=== PATIENT | female | born 1940 | race Caucasian/White ===

== ENCOUNTER → 2017-01-28 | Outpatient (CLI) | payer MEDICARE, BC ==
--- NOTE | 2017-01-29 06:48 | PN ---
DATE OF SERVICE: 01/28/2017 A 76-year-old lady has been followed in the sleep center for treatment of obstructive sleep apnea/hypopnea syndrome. Patient continued to use her equipment every night for the whole night. She brought her CPAP unit, but without electrical cord I cannot check the machine. [place] Sleepiness Scale is only 4. Patient lost weight from 162 pounds during her previous visit down to 154 pounds. No snoring with the machine. No sleepiness during the day. [place] Sleepiness Scale is 4. MEDICATIONS: Levothyroxine, aspirin, atorvastatin, amlodipine, losartan, famotidine, allopurinol, metoprolol, furosemide. PHYSICAL EXAMINATION: During physical exam, the patient in no distress. VITAL SIGNS: BP 133/58, HR 60, RR 16. Height 5 feet 2 inches. Weight 154. BMI 28.1. Temperature 97.7, oxygen saturation at room air 92%, HEENT: PERRLA, EOMI. Evaluation of oropharynx showed low position of soft palate. NECK: Supple. No JVD, Thyroid is not palpable. LUNGS: Clear to percussion and to auscultation. Good air exchange. No wheezing or rhonchi. HEART: S1, S2 regular. No murmurs, gallops, or rubs. ABDOMEN: Soft and nontender. Bowel sounds are present. No organomegaly appreciated. LICENSED CLINICIAN: Awake, alert, and oriented x3. Cranial nerves 2 to 7 intact. There is no fasciculation or atrophy noted. No focal deficits observed. IMPRESSION: 1. Obstructive sleep apnea-hypopnea syndrome, clinically on control with CPAP at 7 cm of water. Patient using 2 L/minute oxygen supplement. 2. Hypertension. 3. Hypothyroidism. 4. Acid reflux. 5. Hyperlipidemia. 6. History of stroke. 7. History of gout. 8. Status post cerebral bypass surgery. PLAN: 1. Continue treatment with CPAP every night for the whole night. Repeat oximetry at home with CPAP at room air to check necessity for additional oxygen. 2. Sleep hygiene with regular time in bed for at least 8 hours. 3. Prescription for all necessary CPAP supplies. Thank you very much for allowing me to participate in the management of your patient. Sincerely, Goran Carrizales MD, PhD, FAASM Diplomat of [place] [employer], Sleep Medicine Board by [place] [employer] [place] [employer] Quality Associate of [facility] [place]
== END | disposition home or self-care (01) ==
LOC: SLEEP 17:00
PROVIDERS: ATTEND Internal Medicine
DX: G47.33 Obstructive sleep apnea (adult) (pediatric) (principal); Z79.899 Other long term (current) drug therapy; I10 Essential (primary) hypertension; E03.9 Hypothyroidism, unspecified; E78.5 Hyperlipidemia, unspecified; M10.9 Gout, unspecified; Z86.73 Personal history of transient ischemic attack (TIA), and cerebral infarction without residual deficits

== ENCOUNTER → 2017-03-29 | Outpatient (CLI) | payer MEDICARE ==
--- NOTE | 2017-03-29 11:09 | US ---
EXAMINATION TYPE: US kidneys/renal and bladder DATE OF EXAM: 03/29/2017 COMPARISON: US and CT abdomen October 13, 2013. CLINICAL HISTORY: N18.3 Chronic kidney disease, stage 3 (moderate). CKD EXAM MEASUREMENTS: Right Kidney: 10.2 x 4.5 x 3.8 cm Left Kidney: 9.2 x 4.4 x 3.4 cm Right Kidney: No evidence of hydro, hypoechoic to anechoic lesion lower/lateral= 0.8 x 0.6 x 0.9 cm probable simple cyst, too small to further characterize Left Kidney: No evidence of hydro, cyst upper/medial= 1.0 x 0.8 x 1.1 cm Bladder: wnl Bilateral Jets seen: Yes There is no evidence for hydronephrosis at this point in time. No nephrolithiasis is seen. No kell s are identified. The urinary bladder is anechoic. Bilateral ureteral jets are seen. IMPRESSION: A few simple appearing cysts are felt present on current study. No hydronephrosis is evident ryan fournier.
== END | disposition home or self-care (01) ==
LOC: RADUSWWP 10:35
PROVIDERS: ATTEND Internal Medicine Nephrology
DX: N28.1 Cyst of kidney, acquired (principal); N18.3 Chronic kidney disease, stage 3 (moderate)
CPT/HCPCS: 76770

== ENCOUNTER → 2018-03-10 | Outpatient (CLI) | payer MEDICARE ==
--- NOTE | 2018-03-10 17:06 | PN ---
PROGRESS NOTE DATE OF SERVICE: 03/10/2018 77-year-old lady has been followed in Sleep Center for treatment of obstructive sleep apnea-hypopnea syndrome. The patient continued to use her equipment every night for the whole night without any significant problems. [place] Sleepiness Scale today is only 2. I checked CPAP unit. CPAP pressure is 7 cm of water. Usage is 100% of the time for more than 4 hours. Average usage is 7.4 hours. Leak is slightly higher than the border 37 L/minute. At the same time, Apnea-hypopnea index is totally normal 2.6. MEDICATIONS: Gabapentin, levothyroxine, aspirin, vitamin D, atorvastatin, amlodipine, losartan, famotidine, allopurinol, metoprolol, furosemide, vitamins and magnesium supplement. PHYSICAL EXAM: Patient in no distress. BP 148/73, HR 67, RR 18, height 5 feet 2 inches, weight 253.8, BMI 28.1, temperature 97.8, oxygen saturation on room air 93%. Oropharynx: Low position of soft palate. Neck: Supple, no JVD. Thyroid is not palpable. LUNGS Clear to percussion and to auscultation. Good air exchange. No wheezing or rhonchi. HEART S1, S2 regular. No murmurs, gallops, or rubs. ABDOMEN: Soft and nontender. Bowel sounds are present. No organomegaly appreciated. EXTREMITIES No clubbing or cyanosis. ASSISTANT WOMEN'S TENNIS COACH Awake, alert, and oriented X3. Cranial nerves 2 to 7 intact. There is no fasciculation or atrophy. noted. No focal deficits observed. IMPRESSION: 1. Severe obstructive sleep apnea-hypopnea syndrome on control with CPAP with 7 cm of water patient demonstrated 100% compliance with treatment benefitting from treatment. The patient is also on oxygen supplement at night at 2 L/minute. 2. Hypertension. 3. Hypothyroidism. 4. Hyperlipidemia. 5. Acid reflux. 6. History of stroke. 7. History of gout. 8. Status post was cerebral bypass surgery. 9. History of stomach ulcer. PLAN: 1. Patient will continue to use her CPAP equipment every night for the whole night. 2. Prescription for all necessary CPAP supplies including mask, tube, filters. 3. No driving if feeling sleepiness. 4. Watching weight. 5. Followup visit in 1 year. 6. I reviewed results of the previous sleep study. It does shows that the patient needs oxygen supplement with the CPAP. Thank you very much for allowing me to participate in management of your patient. Sincerely, Goran Carrizales MD, PhD, FAASM Diplomat of [place] [employer] [employer] Well Service Floorperson of [facility] [place] CLAU / ROSALBA: [id number] /
== END | disposition home or self-care (01) ==
LOC: SLEEP 15:34
PROVIDERS: ATTEND Internal Medicine
DX: G47.33 Obstructive sleep apnea (adult) (pediatric) (principal); K21.9 Gastro-esophageal reflux disease without esophagitis; I10 Essential (primary) hypertension; E03.9 Hypothyroidism, unspecified; E78.5 Hyperlipidemia, unspecified; M10.9 Gout, unspecified; Z99.89 Dependence on other enabling machines and devices; Z79.82 Long term (current) use of aspirin; Z79.899 Other long term (current) drug therapy; Z86.73 Personal history of transient ischemic attack (TIA), and cerebral infarction without residual deficits; Z87.11 Personal history of peptic ulcer disease; Z98.890 Other specified postprocedural states

== ENCOUNTER → 2019-02-02 | Outpatient (CLI) | payer OTHER, MEDICARE ==
--- NOTE | 2019-02-02 21:14 | PN ---
PROGRESS NOTE DATE OF SERVICE: 02/02/2019 78-year-old lady has been followed in the Sleep Center for treatment of obstructive sleep apnea-hypopnea syndrome. The patient successfully continues to use her CPAP equipment. No problem with the mask or pressure. [place] Sleepiness Scale today is 3. I checked patient CPAP unit for the last 6 months, which is 180 days. Patient used it for more than 4 hours, 151 nights and averaged 7.3 hours per night. Pressure is 7 cm of water. Leak is 23 L/minute, which is borderline. Apnea-hypopnea index 3.6, which is normal range. MEDICATIONS: Levothyroxine, aspirin, Atorvastatin, amlodipine, losartan, Famotidine, allopurinol, metoprolol, Furosemide, albuterol. PHYSICAL EXAM: Patient in no distress. BP 153/83, HR 78, RR 16, height 5 feet 2 inches, weight 148.4 pounds and a body mass index 27.0. Oxygen saturation 95%. Temperature 97.7. HEENT: Oropharynx low position of soft palate, Mallampati 3-4. Neck Supple, no JVD. Thyroid is not palpable. LUNGS Clear to percussion and to auscultation. Good air exchange. No wheezing or rhonchi. HEART S1, S2 regular. No murmurs, gallops, or rubs. ABDOMEN Soft and nontender. Bowel sounds are present. No organomegaly appreciated. EXTREMITIES No clubbing or cyanosis. ASSISTANT HVAC MECHANIC Awake, alert, and oriented X3. Cranial nerves 2 to 7 intact. There is no fasciculation or atrophy. noted. No focal deficits observed. IMPRESSION: 1. Obstructive sleep apnea-hypopnea syndrome. Patient demonstrated blue compliance with treatment benefitting from treatment. 2. Patient is also on oxygen 2 L/minute at night. 3. Hypertension. 4. Hypothyroidism. 5. Hyperlipidemia. 6. Acid reflux. 7. History of stroke. 8. History of gout. 9. Status post cerebral bypass surgery. 10.History of chronic obstructive pulmonary disease. PLAN: 1. Patient will continue treatment with CPAP every night for the whole night with 2 L/minute supplement. 2. Sleep hygiene with regular time in bed for at least 8 hours. 3. Prescription for all necessary CPAP supplies. 4. No driving if feeling sleepiness. The patient is a planning to move to [place]. She will find a sleep medicine physician in [place] for followup. Thank you very much for allowing me to participate in management of your patient. Sincerely, oGran Carrizales MD, PhD, FAASM Diplomat of [place] [employer] Nailhead Setter of [facility] [place] MMSCOTTY / ROSALBA: [id number] /
== END ==
LOC: SLEEP 16:22
PROVIDERS: ATTEND Internal Medicine
DX: G47.33 Obstructive sleep apnea (adult) (pediatric) (principal); I10 Essential (primary) hypertension; E03.9 Hypothyroidism, unspecified; E78.5 Hyperlipidemia, unspecified; K21.9 Gastro-esophageal reflux disease without esophagitis; M10.9 Gout, unspecified; Z86.73 Personal history of transient ischemic attack (TIA), and cerebral infarction without residual deficits; Z98.84 Bariatric surgery status; Z87.09 Personal history of other diseases of the respiratory system; Z99.89 Dependence on other enabling machines and devices; Z79.899 Other long term (current) drug therapy; Z79.82 Long term (current) use of aspirin